=== PATIENT | male | born 1965 | race Caucasian/White ===

== ENCOUNTER 2019-05-22 20:16 | Emergency (ER) | payer OTHER ==
[~2019-05-22] VITALS: Ht 175.3 cm; Wt 81.7 kg
[2019-05-22] MEDS ORDERED: KEFLEX500 M2 PO (22:34)
[2019-05-22 22:47] VITALS: BP 112/72
== END 2019-05-22 22:49 | disposition home or self-care (01) ==
LOC: M.ERS 20:16
DX: S61.211A Laceration without foreign body of left index finger without damage to nail, initial encounter (principal); S61.213A Laceration without foreign body of left middle finger without damage to nail, initial encounter; Z90.49 Acquired absence of other specified parts of digestive tract; W23.0XXA Caught, crushed, jammed, or pinched between moving objects, initial encounter; Y93.89 Activity, other specified; Y92.89 Other specified places as the place of occurrence of the external cause; Y99.8 Other external cause status